=== PATIENT | female | born 1980 ===

== ENCOUNTER 2024-09-02 08:15 | Inpatient (IN) | payer OTHER ==
[~2024-09-02] VITALS: Ht 30.5 cm; Wt 53.1 kg
[2024-09-02 08:51] LABS: PH,URINE 5.5 (5.0-8.0); URINE APPEARANCE Clear; URINE BILIRRUBIN Negative (NEGATIVE); URINE BLOOD Negative; URINE COLOR Yellow; URINE GLUCOSE Negative (NEGATIVE); URINE KETONE Negative (NEGATIVE); URINE LEUKOCYTE Negative; URINE NITRATE Negative; URINE PROTEIN Trace (NEGATIVE); URINE UROBILINOGEN 0.2 E.U./dl
[2024-09-02 08:53] LABS: URINE BACTERIA 1948.5 uL (0.0-1933); URINE EPITHELIAL CELLS 31.4 uL (0.0-38.8); URINE RBC 17.2 uL (0.0-20.8); URINE WBC 20.2 uL (0.0-23.2)
[2024-09-02 09:10] LABS: INR 0.95; PARTIAL THROMBOPLASTIN TIME 25.9 SECONDS (22.0-34.0); PROTHROMBIN TIME 10.4 SECONDS (9.0-11.5)
[2024-09-02 09:12] LABS: MEAN CELL VOLUME 77.6 fL (80.00-100.00); MEAN CORPUSCULAR HEMOGLOBIN 25.1 pg (27.00-32.0); MEAN CORPUSCULAR HGB CONC 32.4 g/dl (32.0-36.0); PLATELET COUNT 293 K/uL (150-450); RED BLOOD COUNT 4.77 M/uL (4.00-6.00); RED CELL DISTRIBUTION WIDTH 24.7 % (11.5-14.5)
[2024-09-02 10:18] LABS: ALBUMIN 3.6 gm/dL (3.4-5.0); BILIRUBIN TOTAL 0.31 mg/dL (0.3-1.2); CALCIUM 9.1 mg/dL (8.5-10.1); CREATININE SERUM 0.66 mg/dL (0.55-1.02); GFR 96.41; GLOBULINA 3.5 G/DL (2.4-3.5); POTASSIUM 3.35 mEq/L (3.5-5.1); TOTAL PROTEIN 7.1 gm/dL (6.4-8.2)
[2024-09-02 10:23] LABS: URINE CAST 0.58 uL (0.0-1.40)
[2024-09-08] MEDS ORDERED: CLINDAMYCIN PHOSPHATE 150 MG/ML (900mg) ONE (10:45)
[2024-09-08] MEDS ORDERED: POVIDONE-IODINE 118 ML BOTT TOP ONE (11:04)
[2024-09-08] MEDS ORDERED: SUGAMMADEX SODIUM 200 MG/2 ML VIAL IV ONE (12:39)
[2024-09-08] MEDS ORDERED: MORPHINE SULFATE 4 MG/ML CARTRIDGE IV PRN (14:15)
[2024-09-08] MEDS ORDERED: RINGERS SOLUTION,LACTATED 1,000 ML IV SCH (14:15)
[2024-09-08] MEDS ORDERED: MORPHINE SULFATE 4 MG/ML VIAL IV ONE ×2 (14:40→17:15)
[2024-09-08 18:38] VITALS: BP 129/80
[2024-09-08 19:22] LABS: HEMOGLOBIN 11.3 g/dL (12.0-15.00); MEAN CELL VOLUME 77.2 fL (80.00-100.00); MEAN CORPUSCULAR HGB CONC 32.4 g/dl (32.0-36.0); PLATELET COUNT 264 K/uL (150-450); RED BLOOD COUNT 4.53 M/uL (4.00-6.00); RED CELL DISTRIBUTION WIDTH 24.6 % (11.5-14.5)
[2024-09-08] MEDS ORDERED: ONDANSETRON HCL 2 MG/ML VIAL IV SCH (21:00)
[2024-09-08] MEDS ORDERED: CLINDAMYCIN PHOSPHATE 150 MG/ML (900mg) IV SCH (21:00)
[2024-09-09 00:04] VITALS: BP 124/73
[2024-09-09] MEDS ORDERED: ACETAMINOPHEN WITH CODEINE 1 UDTAB TABLET PO PRN (06:00)
[2024-09-09 08:00] VITALS: BP 129/79
[2024-09-09] MEDS ORDERED: BISACODYL 5 MG TABLET.EC PO SCH (09:00)
[2024-09-09 15:00] VITALS: BP 123/77
[2024-09-10 01:51] VITALS: BP 121/65
[2024-09-10 08:02] VITALS: BP 123/74
== END 2024-09-10 10:01 | disposition home or self-care (01) | DRG 743 ==
LOC: O/R 09-08 05:30 → SURH 09-08 07:00 → OB/GYN 09-08 15:55
PROVIDERS: ADMIT Obstetrics & Gynecology; ATTEND Obstetrics & Gynecology
PROC: 0UT70ZZ Resection of Bilateral Fallopian Tubes, Open Approach (ICD-10-PCS; 2024-09-08)
PROC: 0UT90ZZ Resection of Uterus, Open Approach (ICD-10-PCS; principal; 2024-09-08 07:00)
DX: D25.1 Intramural leiomyoma of uterus (principal); N72 Inflammatory disease of cervix uteri; N83.01 Follicular cyst of right ovary; N83.02 Follicular cyst of left ovary; N80.03 Adenomyosis of the uterus